=== PATIENT | female | born 1965 | race Caucasian/White ===

== ENCOUNTER → 2017-02-22 | Outpatient (CLI) | payer OTHER | LOC: FIMAGING 09:18 | PROVIDERS: ATTEND Internal Medicine Gastroenterology | DX: K76.0 Fatty (change of) liver, not elsewhere classified (principal) ==

== ENCOUNTER → 2017-03-28 | Outpatient (CLI) | payer OTHER ==
--- NOTE | 2017-03-29 05:26 | CPEEG ---
[f rep st] ELECTROENCEPHALOGRAM FOUR-HOUR VIDEO EEG. DATE OF STUDY: 03/28/2017 DATE OF INTERPRETATION: 03/28/2017. INTERPRETATION: This 4-hour video EEG recording is normal. There were no potentially epileptogenic abnormalities present during the awake or sleep recordings. During the video EEG monitoring fernando pradhan, the patient did not have any clinical events. REPORT: This 4-hour video EEG contains 10 Hz alpha to the posterior head regions. There was no abn ormal activation at rest, during photic stimulation or hyperventilation. The patient became drowsy and fell into sustained sleep during the study. There was no abnormal activation during drowsiness, sleep, or during times of arousal. The patient did not have any clinical events during the video E EG monitoring session. /[id number]/MODL
== END ==
LOC: FCPNEURO 08:43
PROVIDERS: ATTEND Physician Assistant Medical
DX: R41.3 Other amnesia (principal)

== ENCOUNTER → 2017-03-30 | Outpatient (CLI) | payer OTHER | LOC: FIMAGING 19:28 | PROVIDERS: ATTEND Physician Assistant Medical | DX: R41.3 Other amnesia (principal); S06.0X9A Concussion with loss of consciousness of unspecified duration, initial encounter; X58.XXXA Exposure to other specified factors, initial encounter ==

== ENCOUNTER → 2017-07-12 | Outpatient (CLI) | payer OTHER | LOC: FIMAGING 11:21 | PROVIDERS: ATTEND Internal Medicine Gastroenterology | DX: K70.30 Alcoholic cirrhosis of liver without ascites (principal) ==

== ENCOUNTER → 2017-08-03 | Outpatient (CLI) | payer OTHER | LOC: FIMAGING 07:41 | PROVIDERS: ATTEND Physician Assistant | DX: Z12.31 Encounter for screening mammogram for malignant neoplasm of breast (principal) | CPT/HCPCS: G0202 ==

== ENCOUNTER 2017-10-25 10:53 | Day surgery (SDC) | payer OTHER ==
[2017-10-25] MEDS ORDERED: LR 1,000 ML IV ONE (11:18)
--- NOTE | 2017-10-25 11:57 | PDANEPAE ---
ANE History of Present Illness liver disease ANE Past Medical History - Cardiovascular History Hx Hypertension: No Hx Arrhythmias: No Hx Chest Pain: No Hx Coronary Artery / Peripheral Vascular Disease: No Hx CHF / Valvular Disease: No Hx Palpitations: No Cardiovascular History Comment: Peripheral edema - Pulmonary History Hx COPD: No Hx Asthma/Reactive Airway Disease: No Hx Recent Upper Respiratory Infection: No Hx Oxygen in Use at Home: No Hx Sleep Apnea: No Sleep Apnea Screening Result - Last Documented: Negative - Neurologic History Hx Seizures: Yes Neurologic History Comment: No recent seizures,. Multiple Head injuries with LOC-mild memory issues. - Endocrine History Hx Diabetes: No Hypothyroid: Yes Endocrine History Comment: hypothyroid-med - Renal History Hx Renal Disorders: Yes Renal History Comment: Stage III Renal disease - Liver History Hx Hepatic Disorders: Yes Hepatic History Comment: New onset of Ascities- chirrosis. Multiple attempts to paracentesis unable to obtain fluid. Heavy ETOH abuse in past. Elevated Liver enzymes. Anemia - Neurological & Psychiatric Hx Hx Neurological and Psychiatric Disorders: Yes Neurological / Psychiatric History Comment: Manic Depression-meds. - Cancer History Hx Cancer: No - Congenital Disorder History Hx Congenital Disorders: No - GI History Hx Gastrointestinal Disorders: Yes Gastrointestinal History Comment: Colonoscopy requiring general anesthesia. IVCS did not sedate or give pain control to pt. Hx of HPYLORI. GI bleeding in past-meds. Chronic diarrhea.Chronid diarhhea.Severe daily nasea. 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 Chipped teeth. Anemia in past. Bruises easily - Chronic Pain History Chronic Pain: No - Surgical History Prior Surgeries: Cholecystectomy. Multiple Right knee surgeries. ANE Review of Systems Review of systems is: negative Review of Systems: - Exercise capacity METS (RN): 4 METS ANE Patient History - Allergies Allergies/Adverse Reactions: onion Allergy (Intermediate, Verified 06/22/16 05:28) codeine [Codeine] Allergy (Unknown, Verified 06/22/16 05:28) Other-Enter Comments pollen extracts Allergy (Verified 06/22/16 05:28) - Home Medications Home Medications: Levothyroxine [Synthroid 50 mcg (*)] 10/26/14 [Last Taken 10/23/17] lamoTRIgine [LaMICtal] 10/26/14 [Last Taken 10/24/17] traZODone [traZODONE 100MG (*)] 10/26/14 [Last Taken 10/24/17] clonazePAM [klonoPIN (*)] 06/28/15 [Last Taken 10/24/17] Ondansetron Odt [Zofran Odt 4 mg (*)] 07/09/15 [Last Taken 10/23/17] Ranitidine HCl [Zantac] 07/09/15 [Last Taken 10/25/17] Zoloft 100mg (RX) 02/23/16 [Last Taken 10/23/17] Topamax 10/23/17 [Last Taken 10/24/17] traMADol [Ultram 50 mg (*)] 10/23/17 [Last Taken 10/24/17] - NPO status NPO Since - Liquids (Date): 10/25/17 NPO Since - Liquids (Time): 10:00 NPO Since - Solids (Date): 10/24/17 NPO Since - Solids (Time): 17:00 - Smoking Hx Smoking Status: Light smoker - Family Anes Hx Family Hx Anesthesia Complications: none ANE Labs/Vital Signs - Vital Signs Blood Pressure: 130/80 Heart Rate: 72 Respiratory Rate: 16 O2 Sat (%): 92 Height: 154.94 cm Weight: 49.895 kg ANE Physical Exam - Airway Neck exam: FROM Mallampati Score: Class 1 Mouth exam: normal dental/mouth exam - Pulmonary Pulmonary: no respiratory distress - Cardiovascular Cardiovascular: regular rate and rhythym - ASA Status ASA Status: III ANE Anesthesia Plan Total IV Anesthesia: Yes
--- NOTE | 2017-10-25 12:31 | PDGENHP ---
History & Physical Chief Complaint: abdo pain History of Present Illness: recurrent epi pain Pertinent Past, Social, Family History: occ alcohol, tobacco 3 per day. fhx father hep C,panc cancer Relevant Physical Exam: CTA. S1S2. +BS, soft tender Cardiorespiratory Assessment: class 3 pt
[2017-10-25] MEDS ORDERED: PROPOFOL 200 MG/20 ML VIAL ONE ×2 (12:45)
[2017-10-25] MEDS ORDERED: NALOXONE HCL 0.4 MG/ML INJ IVP PRN (12:52)
--- NOTE | 2017-10-25 12:55 | POSTOPPROG ---
Post Op Note Date of Operation: 10/25/17 Surgeon: Red Jasso Anesthesiologist: Brit Anesthesia: Local (Specify) (IV genreal) Pre-op Diagnosis: epi pain Post-op Diagnosis: gastritis and duodenitis Indication: epi pain nausea Procedure: egd with bx Findings: gastritis and duodenitis Inf/Abcess present in the surg proc area at time of surgery?: No EBL: Minimal (few ml from bx) Total fluids administered: 300 ml LR Complications: none immediate
--- NOTE | 2017-10-25 13:00 | GIREPORT ---
[facility] Surgical Services - Endoscopy Department Patient Name: Ayleen Roca Procedure Date: 10/25/2017 11:35 AM Patient Type: Outpatient Attending MD/ ER Physician: Chiquis Vides Procedure: Upper GI endoscopy Indications: Epigastric abdominal pain, Nausea Providers: Greg Jasso MD Medicines: Sedation Required Anesthesia Staff Assistance Complications: No immediate complications. Estimated blood loss: Minimal. Description of Procedure: After obtaining informed consent, the endoscope was passed under direct vision. Throughout the procedure, the patient's blood pressure, pulse, and oxygen saturations were monitored continuously. The Endoscope was intro duced through the mouth, and advanced to the third part of duodenum. The uppe r GI endoscopy was accomplished without difficulty. The patient tolerated th e procedure well. Findings: The examined esophagus was normal. Scattered mild inflammation characterized by congestion (edema), erythe ma, friability and granularity was found on the greater curvature of the ga stric body and in the gastric antrum. Biopsies were taken with a cold forceps for histology. Estimated blood loss was minimal. Diffuse mild mucosal variance characterized by discoloration and altere d texture was found in the entire duodenum. Biopsies were taken with a co ld forceps for histology. Estimated blood loss was minimal. The exam was otherwise without abnormality. Estimated Blood Loss: Estimated blood loss was minimal. Post Op Diagnosis: - Normal esophagus. - Gastritis. Biopsied. - Mucosal variant in the duodenum. Biopsied. - The examination was otherwise normal. Recommendation: - Await pathology results. - My office will call with the pathology result with 5-7 days. If you h ave not heard from my office by 12-14, do not assume the pathology is manny l, please call [phone] to get the pathology reults. - Use Protonix (pantoprazole) 40 mg PO daily. - Use Zantac (ranitidine) 300 mg PO at bedtime. - Patient has a contact number available for emergencies. The signs and symptoms of potential delayed complications were discussed with the pat iesakshi. Return to normal activities tomorrow. Written discharge instructions we re provided to the patient. - Continue present medications. - Discharge patient to home (ambulatory). - Return to GI clinic in 8 weeks. - Return to primary care physician as previously scheduled. - Thank you for allowing me to help in your patient's care. Do not hesi fontaine to call with any questions. Attending Participation: I personally performed the entire procedure. Romero Garza M.D Greg Jasso MD 10/25/2017 12:59:49 PM This report has been signed electronicallyMathew MD Romero Number of Addenda: 0 Note Initiated On: 10/25/2017 11:35 AM [email or web address]
--- NOTE | 2017-10-25 13:03 | POSTANESTH ---
Post Anesthetic Evaluation Cardiovascular Status: Normal, Stable Respiratory Status: Normal, Stable Level of Consciousness/Mental Status: Can Participate in Eval Pain Control: Adequate, Prn Tx Ordered Nausea/Vomiting Control: Adequate, Prn Tx Ordered Complications Possibly Related to Anesthesia: None Noted
[2017-10-25 14:04] VITALS: BP 114/69; PULSE 61; RESP 16; TEMP 97.5; O2SAT 97
== END 2017-10-25 14:18 | disposition home or self-care (01) ==
LOC: FSGY 10:53
PROVIDERS: ATTEND Internal Medicine Gastroenterology
PROC: 0DB68ZX Excision of Stomach, Via Natural or Artificial Opening Endoscopic, Diagnostic (ICD-10-PCS; principal; 2017-10-25 12:00)
PROC: 0DB98ZX Excision of Duodenum, Via Natural or Artificial Opening Endoscopic, Diagnostic (ICD-10-PCS; principal; 2017-10-25 12:00)
DX: K29.70 Gastritis, unspecified, without bleeding (principal); K29.80 Duodenitis without bleeding; K70.31 Alcoholic cirrhosis of liver with ascites; N18.3 Chronic kidney disease, stage 3 (moderate); F33.9 Major depressive disorder, recurrent, unspecified; F10.21 Alcohol dependence, in remission; F17.210 Nicotine dependence, cigarettes, uncomplicated; Z87.820 Personal history of traumatic brain injury; Z80.8 Family history of malignant neoplasm of other organs or systems; K52.9 Noninfective gastroenteritis and colitis, unspecified
CPT/HCPCS: J2704

== ENCOUNTER → 2018-01-03 | Outpatient (CLI) | payer OTHER | LOC: FIMAGING 07:57 | PROVIDERS: ATTEND Internal Medicine Gastroenterology | DX: K76.0 Fatty (change of) liver, not elsewhere classified (principal) ==

== ENCOUNTER 2018-02-16 22:52 | Emergency (ER) | payer OTHER ==
--- NOTE | 2018-02-16 23:28 | EDPHY ---
General - History Smoking Status: Light smoker Time Seen by Provider: 02/16/18 23:10 Narrative: CHIEF COMPLAINT: Suicidal. Asking for psychiatric evaluation HISTORY OF PRESENT ILLNESS: Patient presents with complaints of feeling suicidal. She says "I'm done with it. I want to end it all." She has strong odor of alcohol about her but converses appropriately without slurring her words. She says that she has been feeling depressed and suicidal. She wants to kill herself. She would do so by drinking or taking her prescription medications. She expresses intent to do so. She also expresses her frustration with her roommate. She has been drinking alcohol today to cope with this. She will not provide any other details for this. She does have previous history of depression alcohol abuse. PSYCHIATRIC DIAGNOSES: Uncertain PRIOR PSYCHIATRIC EVALUATIONS: Depression M1/DETAINER: Dr. Rodriguez at 11:37 p.m. Day of admission REVIEW OF SYSTEMS: Ten systems reviewed and are negative unless otherwise noted in the HPI EXAMINATION General Appearance: Alert, no distress. Strong odor of alcohol Head: normocephalic, atraumatic Eyes: Pupils equal and round, no conjunctival pallor or injection ENT, Mouth: Mucous membranes moist. Uvula midline. Airway patent Neck: Normal inspection, supple, non-tender Respiratory: Lungs are clear to auscultation. No wheezing, rhonchi or crackles Cardiovascular: Regular rate and rhythm. No murmur Gastrointestinal: Abdomen is soft and nontender. No tympany rigidity Back: non-tender, no bony abnormalities Neurological: GCS 15. A&O, nonfocal, normal gait Skin: Warm and dry, no rash Extremities: Nontender, no pedal edema Psychiatric: Depressed mood and flat affect. Suicidal ideation with plan of pill ingestion DIFFERENTIAL DIAGNOSES: Including but not limited to suicidal ideation, depression, acute alcohol intoxication, alcohol abuse MDM: 11:20 p.m. Suicidal ideation and a patient who appears to be acutely intoxicated by alcohol. Patient expresses intent to harm herself, thus she will be placed on an M1 hold. 11:40 p.m. Patient's serum alcohol level is 248. This is too high for her to be evaluated at this time. She will need to remain in this emergency department until her alcohol level is low enough to be evaluated by mental health professional. She is requesting her nighttime medications including trazodone. We will provide this. Will also continue to monitor her vitals given her alcohol intoxication. She is awake and alert, she is protecting her airway without any difficulty or need for supplemental oxygen or oropharyngeal airways. 12:30 a.m. Patient's urine drug screen has returned negative. At this time she is medically cleared but cannot yet be evaluated as her blood alcohol level is higher that acceptable by the evaluating providers. Thus she will remain in the emergency department overnight until her serum alcohol level is low enough for evaluation she is currently resting comfortably at this time in no acute distress. 12:50 a.m. At this time I have discussed the case with Dr. Rodriguez. He will assume care the patient. She is pending evaluation which will likely occur in the morning. She has been cooperative and resting comfortably. SUPERVISION: Patient was independently examined, but I discussed the case with my secondary supervising physician Dr. Rodriguez ([facility]) Care assumed 0640 with psych evaluation pending. Etoh level noted. 1405: Signed out to Edward with psych evaluation pending. (Mainor Bettencourt) Medical Decision MakinAM: Patient has been sleeping. No acute events overnight. Patient is on M1 hold for suicidal ideation in the setting of depression and alcohol use. 0700: Patient signed over to Dr. Bettencourt Shift-change. (Carlos Rodriguez) Discussion: 15:50:Patient has been evaluated by Mental Health who request dropping of hold and discharge home as patient is now stable and no longer suicidal. (Boone Leon) - Objective Vital Signs: Initial Vital Signs Temperature (C) 36.3 C 02/16/18 23:03 Heart Rate 89 02/16/18 23:03 Respiratory Rate 17 02/16/18 23:03 Blood Pressure 110/68 02/16/18 23:03 O2 Sat (%) 94 02/16/18 23:03 O2 Delivery Mode Room Air Allergies/Adverse Reactions: onion Allergy (Intermediate, Verified 06/22/16 05:28) codeine [Codeine] Allergy (Unknown, Verified 06/22/16 05:28) Other-Enter Comments pollen extracts Allergy (Verified 06/22/16 05:28) Home Medications: Medication Instructions Recorded Levothyroxine [Synthroid 50 mcg 10/26/14 (*)] lamoTRIgine [LaMICtal] 10/26/14 traZODone [traZODONE 100MG (*)] 10/26/14 clonazePAM [klonoPIN (*)] 06/28/15 Ondansetron Odt [Zofran Odt 4 mg 07/09/15 (*)] Ranitidine HCl [Zantac] 07/09/15 Topamax 10/23/17 Pantoprazole Sodium 02/17/18 Laboratory Results: Laboratory Results 02/16/18 23:30 02/16/18 23:30 Medications Given: Trazodone HCl (Trazodone) 100 mg PO EDNOW ONE Stop: 02/17/18 23:46 Last Admin: 02/17/18 00:24 Dose: 100 mg Discontinued Medications Clonazepam (Klonopin) 0.5 mg PO EDNOW ONE Stop: 02/16/18 23:52 Last Admin: 02/16/18 23:53 Dose: 0.5 mg Departure - Departure Disposition: Home, Routine, Self-Care Clinical Impression: Suicidal ideation Alcohol intoxication Qualifiers: Complication of substance-induced condition: uncomplicated Qualified Code(s): F10.920 - Alcohol use, unspecified with intoxication, uncomplicated Condition: Good Instructions: Alcohol Intoxication (ED), Suicide Prevention for Adults (ED) Referrals: Tana Thomas PA [Primary Care Provider] - As per Instructions
[2018-02-16 23:33] LABS: PLATELET COUNT 176 10^3/uL (150-400)
[2018-02-16] MEDS ORDERED: traZODone 50 MG TAB ONE (23:46)
[2018-02-16] MEDS ORDERED: clonazePAM 0.5 MG TAB PO ONE (23:51)
[2018-02-17 16:37] VITALS: BP 129/88; PULSE 88; RESP 14; TEMP 98.2; O2SAT 95
[2018-02-17] MEDS ORDERED: traZODone 100 MG TAB PO ONE (23:45)
== END 2018-02-17 16:37 | disposition home or self-care (01) ==
DX: R45.851 Suicidal ideations (principal); F10.920 Alcohol use, unspecified with intoxication, uncomplicated; F17.200 Nicotine dependence, unspecified, uncomplicated
CPT/HCPCS: 80305; G0480

== ENCOUNTER → 2018-03-09 | Outpatient (CLI) | payer OTHER | LOC: FIMAGING 12:46 | PROVIDERS: ATTEND Physician Assistant | DX: R06.02 Shortness of breath (principal) ==

== ENCOUNTER → 2018-04-24 | Outpatient (CLI) | payer OTHER | LOC: FIMAGING 18:39 | PROVIDERS: ATTEND Physician Assistant Medical | DX: R51 Headache (principal); R55 Syncope and collapse; S09.90XS Unspecified injury of head, sequela ==

== ENCOUNTER 2018-05-05 17:40 | Emergency (ER) | payer OTHER ==
--- NOTE | 2018-05-05 18:12 | EDPHY ---
H & P Time Seen by Provider: 05/05/18 18:02 HPI/ROS: Chief complaint. Head injury HPI. 52-year-old female here with scalp laceration. She arrives by EMS. She tripped and fell on a wet bathroom floor at home. She hit her head on the floor. She sustained laceration but no loss of consciousness. She does complain of neck pain. No chest or abdominal discomfort. No trouble breathing. No injury to arms or legs. Injury occurred just prior to arrival ROS Constitutional. no fever/chills, no weakness Eyes. no problems with vision ENT. no sore throat, no nasal drainage Cardiovascular. no chest pain Respiratory. no shortness of breath, no cough Abdominal. no abdominal pain, no nausea/vomiting, no diarrhea . no problems urinating MS. Neck pain Skin. Scalp laceration Lymph. no swollen glands Neuro. no headache, no dizziness, no difficulty walking or with speech Past Medical/Surgical History: Past medical history is significant for concussions, hypothyroid, Lyme disease, ascites, renal failure, liver failure, bipolar illness, alcoholism, chronic pain Social History: Single, daily smoker, no alcohol Smoking Status: Light smoker Physical Exam: General Appearance: Alert well-developed female mild distress vital signs are stable Eyes: Pupils equal and round no pallor or injection. ENT, no hemotympanum or Forman sign. No oral pharyngeal or dental trauma. Respiratory: There are no retractions, lungs are clear to auscultation. Cardiovascular: Regular rate and rhythm. Gastrointestinal: Abdomen is soft and nontender, no masses, bowel sounds normal. Neurological: Awake and alert, sensory and motor exams grossly normal. Skin: 2.5 cm laceration to scalp Musculoskeletal: Neck is tender over the C6, C7 area Extremities symmetrical, full range of motion. Psychiatric: Patient is oriented X 3, there is no agitation. Constitutional: Initial Vital Signs Temperature (C) 36.7 C 05/05/18 17:40 Heart Rate 94 05/05/18 17:40 Respiratory Rate 18 05/05/18 17:40 Blood Pressure 119/85 H 05/05/18 17:40 O2 Sat (%) 93 05/05/18 17:40 O2 Delivery Mode Room Air Allergies/Adverse Reactions: onion Allergy (Intermediate, Verified 05/05/18 17:54) codeine [Codeine] Allergy (Unknown, Verified 05/05/18 17:54) Other-Enter Comments pollen extracts Allergy (Verified 05/05/18 17:54) Home Medications: Medication Instructions Recorded Levothyroxine [Synthroid 50 mcg 10/26/14 (*)] lamoTRIgine [LaMICtal] 10/26/14 traZODone [traZODONE 100MG (*)] 10/26/14 clonazePAM [klonoPIN (*)] 06/28/15 Fluticasone Furoate 05/05/18 Topiramate 05/05/18 Medical Decision Making - Diagnostics Imaging Results: Cervical spine x-ray interpreted by me shows DJD but no evidence for fracture Procedures: Procedure: Laceration repair. Verbal consent was obtained from the patient. The 3 cm laceration on the scalp was anesthetized in the usual fashion. The wound was irrigated, draped and explored to its base with a gloved finger. There were no deep structures involved. No tendon injury was identified. The wound was repaired with five 3- 0 Prolene sutures. The wound repair was simple. The procedure was performed by myself. ED Course/Re-evaluation: Patient remained stable. She and I discussed treatment plan including criteria for return importance of follow-up further evaluation. She expresses understanding and agreement Re-evaluation at 7:20 p.m.. Patient is stable Differential Diagnosis: I considered intracranial injury, skull fracture cervical spine injury. Departure - Departure Disposition: Home, Routine, Self-Care Clinical Impression: Scalp laceration Qualifiers: Encounter type: initial encounter Qualified Code(s): S01.01XA - Laceration without foreign body of scalp, initial encounter Condition: Good Instructions: Care For Your Stitches (ED) Additional Instructions: Ice to sore areas next 24 hr. Tylenol for discomfort. You may shower and wash your hair with you stitches in. Return for signs of infection. Return for worsening headache, fever, vomiting. Stitches out 1 week Referrals: Patient,NotPresent [Unknown] - As per Instructions
[2018-05-05 19:37] VITALS: BP 128/73
== END 2018-05-05 19:36 | disposition home or self-care (01) ==
LOC: EDUNIT#
PROC: 0HQ0XZZ Repair Scalp Skin, External Approach (ICD-10-PCS; principal; 2018-05-05)
DX: S01.01XA Laceration without foreign body of scalp, initial encounter (principal); F17.200 Nicotine dependence, unspecified, uncomplicated; W01.0XXA Fall on same level from slipping, tripping and stumbling without subsequent striking against object, initial encounter; Y92.002 Bathroom of unspecified non-institutional (private) residence as the place of occurrence of the external cause

== ENCOUNTER → 2018-06-22 | Outpatient (CLI) | payer OTHER | LOC: FIMAGING 11:20 | PROVIDERS: ATTEND Internal Medicine Gastroenterology | DX: K70.30 Alcoholic cirrhosis of liver without ascites (principal) ==

== ENCOUNTER → 2019-01-11 | Outpatient (CLI) | payer OTHER | LOC: FIMAGING 10:03 | PROVIDERS: ATTEND Physician Assistant | DX: K76.0 Fatty (change of) liver, not elsewhere classified (principal); K70.30 Alcoholic cirrhosis of liver without ascites ==